=== PATIENT | male | born 2000 | race Caucasian/White ===

== ENCOUNTER 2024-04-28 14:41 | Emergency (ER) | payer OTHER ==
[2024-04-28 15:42] VITALS: BP 128/72; PULSE 66; RESP 18; TEMP 98.3; BMI 27.3
[2024-04-28] MEDS ORDERED: IBUPROFEN 600 MG TABLET (FP) PO ONE (16:25)
[2024-04-28] MEDS: IBUPROFEN 600 MG TABLET (FP) PO ONE (16:40)
== END 2024-04-28 16:54 | disposition home or self-care (01) ==
LOC: JERFT 14:41
DX: S93.402A Sprain of unspecified ligament of left ankle, initial encounter (principal); X50.9XXA Other and unspecified overexertion or strenuous movements or postures, initial encounter; Y93.01 Activity, walking, marching and hiking
CPT/HCPCS: 73610-TC-LT-FY; 73630-TC-LT; 99283-25

== ENCOUNTER 2024-05-12 06:18 | Day surgery (SDC) | payer OTHER ==
[2024-05-12] MEDS ORDERED: DEXAMETHASONE SOD PHOSPHATE 4 MG/1 ML VIAL ONE (07:00)
[2024-05-12] MEDS ORDERED: METOCLOPRAMIDE HCL INJECTION 10 MG/2 ML VIAL ONE (07:00)
[2024-05-12] MEDS ORDERED: ONDANSETRON 4 MG/2 ML VIAL ONE ×2 (07:00→09:56)
[2024-05-12] MEDS ORDERED: ceFAZolin SODIUM 1 GM VIAL ONE (07:00)
[2024-05-12] MEDS ORDERED: PROPOFOL 60 ML ONE (07:03)
[2024-05-12 07:04] VITALS: BMI 30.2
[2024-05-12] MEDS ORDERED: MIDAZOLAM HCL 2 MG/2 ML SINGLE DOSE VIAL ONE (07:04)
[2024-05-12] MEDS ORDERED: ROPIVACAINE HCL/PF 100 MG/20 ML VIAL ONE (07:10)
[2024-05-12] MEDS ORDERED: PROPOFOL 20 ML ONE ×2 (08:08→08:10)
[2024-05-12] MEDS ORDERED: oxyCODONE HCL 5 MG TABLET PO PRN (08:52)
[2024-05-12] MEDS ORDERED: LACTATED RINGERS SOLUTION 1,000 ML IV SCH (09:00)
[2024-05-12] MEDS ORDERED: FENTANYL CITRATE/PF 50 MCG/ML VIAL ONE ×2 (09:46→10:08)
[2024-05-12] MEDS: ONDANSETRON 4 MG/2 ML VIAL IVPUSH PRN (09:50)
[2024-05-12] MEDS ORDERED: ACETAMINOPHEN INJECTION 100 ML IVPB ONE (09:58)
[2024-05-12] MEDS: ACETAMINOPHEN 1000 MG/100 ML BAG IVPB ONE (10:00)
[2024-05-12] MEDS: oxyCODONE HCL 5 MG TABLET PO PRN (10:50)
[2024-05-12] MEDS ORDERED: oxyCODONE HCL 5 MG TABLET ONE (10:52)
[2024-05-12 11:05] VITALS: RESP 16; TEMP 96.8
[2024-05-12 11:39] VITALS: PULSE 76
[2024-05-12 12:41] VITALS: BP 110/72
== END 2024-05-12 12:30 | disposition home or self-care (01) ==
LOC: FASU 06:18
PROVIDERS: ATTEND Orthopaedic Surgery Sports Medicine
PROC: 0SSG0ZZ Reposition Left Ankle Joint, Open Approach (ICD-10-PCS; principal; 2024-05-12 08:36)
DX: S93.432A Sprain of tibiofibular ligament of left ankle, initial encounter (principal); X58.XXXA Exposure to other specified factors, initial encounter; Y92.9 Unspecified place or not applicable; Y93.9 Activity, unspecified
CPT/HCPCS: 27829; C1713; 73610-TC-LT-FY; 94760; J0131